=== PATIENT | male | born 1975 | race Caucasian/White ===

== ENCOUNTER 2025-04-03 15:06 | Outpatient (AMB) | payer BC, SELFPAY ==
[2025-04-03 15:28] VITALS: BP 120/76; PULSE 59; BMI 29.6
--- NOTE | 2025-04-03 15:28 | A.OFFVIS_ITS ---
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 Patient is a 49-year-old male with prior history of what appears to be TIA as per him treated about 10 years ago at [facility] subsequently transferred to [facility]. He does not know much details of the workup and the entire episode however he says that he had developed sudden-onset vision loss and had trouble focusing and got dizzy and had gone to the emergency room. At that time was diagnose with possible TIA/stroke and was urgently transferred to [facility] where he underwent further workup. He is not sure as to the details of the workup but remembers that he was told that he might have a small hole in his heart. No further follow-up or treatment or therapy such as antiplatelet therapy was requested for him. He was at that time diagnose with hypertension and was started on lisinopril therapy which she has been taking. Ever since then before that he said he has been avid runner. He can run trail runs for 3 to 3-1/2 hours and have no issues. He usually runs with a partner. However he says over the last 2 years he has notices that he has been getting increasing exertional shortness of breath and inability to keep up with his partner. His symptoms have got worse over the last 6 months in his really concerned about the symptoms. He said he gets really short of breath and lightheaded and has to stop in his symptoms pippa and then he can continue to run. He has no associated chest pain. He has no orthopnea, PND, leg edema. Denies any prolonged palpitation irregular heartbeat. Family history of father having stenting done in his 60s. He said he has cholesterol was pretty normal although I do not have his most recent lipid panel. He said he stopped smoking many years ago but was exposed as a child to smoking. [facility] Surgical History Hx of hernia repair Social History Patient Tobacco Use Status: Former Tobacco user Review of Systems Const Denies chills, Denies daytime sleepiness, Denies fatigue, Denies fever(s), Denies frequent falls, Denies poor appetite, Denies snoring, Denies stops breathing during sleep, Denies weakness, Denies weight gain and Denies weight loss Eyes Denies loss of vision ENT Denies dizziness and Denies hearing loss Card Denies chest pain, Denies claudication, Denies leg edema, Denies li ghtheadedness, Denies palpitations, Denies dyspnea, Denies dyspnea on exertion and Denies orthopnea Resp Denies cough, Denies excessive phlegm production, Denies dyspnea, Denies dyspnea on exertion, Denies snoring and Denies wheezing GI Denies abdominal pain, Denies hematochezia, Denies change in bowel habits, Denies nausea and Denies vomiting Denies dysuria and Denies urinary frequency Musc Denies arthralgias, Denies muscle weakness and Denies numbness Skin/Breast Denies nail changes and Denies rash Neuro Denies Abnormal speech present, Denies dizziness, Denies frequent falls, Denies loss of vision, Denies memory loss, Denies numbness and Denies weakness Psych Denies depression and Denies memory loss Endo Denies fatigue and Denies palpitations Hipolito/Lymph Reports easy bruising and Reports other (anemia) Aller/Immun Denies wheezing Physical Exam Vital Signs: Last Vital Signs Pulse 59 04/03/25 15:28 BP 120/76 04/03/25 15:28 BMI result Body Mass Index 29.6 Const General: cooperative, comfortable, no acute distress, well developed, alert, awake, Physically active and well groomed Nutritional Appearance: average body habitus Orientation/consciousness: patient oriented x3 Limitations: no limitations HEENT Head: Yes normocephalic and Yes atraumatic Neck Neck: Yes trachea midline, Yes supple and Yes no JVD Resp Effort & Inspection: normal respiratory effort Auscultation: clear to auscultation bilaterally and diminished lung sounds Cardio Jugular venous distension: no JVD Palpation: normal PMI Rate: regular rate Rhythm: regular rhythm Heart sounds: S1 normal heart sound present, S2 normal heart sound present, no click, no gallops, no murmurs and no rubs GI Auscultation: normal bowel sounds Skin General skin exam: no rashes or lesions noted Neuro General: patient oriented x3 and no focal motor deficits Speech: No Abnormal speech present Extrem General: Yes no clubbing, cyanosis or edema Psych Appearance: grossly normal Office Procedures EKG Details: EKG shows sinus bradycardia otherwise normal EKG 38635-Odzceankscynseegi, Complete Assessment & Plan Assessment & Plan (1) Short of breath on exertion: Code(s): R06.02 - Shortness of breath Category: Medical Plan: Patient presents with reducing exercise capacity with worsening exertional shortness of breath with his usual activity as running which he is not able to keep up with his partners at this point time over the last 6 months this is gradually got worse. He has no associated chest pain syndrome. Although he has risk factors of hypertension as well as family history. Cardiac abnormalities need to be ruled out especially myocardial ischemia. Given his baseline normal EKG will suggest him to undergo a treadmill stress test to assess exercise capacity as well as hemodynamic response and EKGs changes that would suggest ischemia. Will also obtain an echocardiogram to assess for LV systolic and diastolic function to evaluate for RV size and systolic function and pulmonary hypertension as well as valvular abnormalities. This was discussed with him in details. His lung exam findings up possibly suggestive of underlying lung parenchymal disease and if his cardiac testing are within normal limits suggest him to undergo pulmonary function test but also consider screening test with coronary calcium score in the future. This was discussed with him in details. He understands agrees. Currently his blood pressure is well optimized in his advised to continue lisinopril therapy. I am concerned about his prior episode of TIA 10 years ago and will try to obtain records especially to assess for presence of PFO and we may need to further investigate and treat that if necessary. Will follow up with him in 4-6 weeks time, sooner p.r.n.. Thank you for allowing me to partake in his care Orders: Orders CA echo transthoracic complete Today R06.02 - Shortness of breath CA stress test Today R06.02 - Shortness of breath Coding Level of Care Code New Pt Level 4 (09861) Complex EM visit Add On G2211 Diagnoses Short of breath on exertion R06.02 CPT Codes EKG - CPT: 08725-Olysbddcgjbilbpdz, Complete ([id number])
--- OUTSIDE RECORDS SUMMARY | 2025-04-03 16:02 | XMS_ITS ---
Author Name [facility] Organization Unknown Care Team Organization Name Specialty Phone Email Start Date End Da sterling [facility] And[facility] 06/22/2022 04/02/2024
--- OUTSIDE RECORDS SUMMARY | 2025-04-03 16:02 | XMS_ITS | Clinical Summary ---
Author Organization [address] Address [address] [place] [phone] Phone Care Team Providers Care Airline Station Agent Name Role Phone Noemi Andrade MD Primary Care Provider [phone] Allergies No known active allergies Medications allopurinoL (ZYLOPRIM) 100 mg tablet Take 1 tablet (100 mg total) by mouth 1 (one) time each day. 90 each 1 5 Active lisinopriL (PRINIVIL,ZESTR IL) 5 mg tablet Take 1 tablet (5 mg total) by mouth 1 (one) time each day. 90 each 5 Active Additional Information Patient taking differently:5 mg oralEvery other day, Reported on 01/10/2025 polyethylene glycol (Golytely) 236-22.74-6.74 -5.86 gram solution Take 4L by mouth once for one dose. May substitue any PEG. Starting at 6PM the night before your procedure drink 1 8oz glasses at your own pace until you complete half of the gallon. Finish 2nd half of the gallon 5 hours before your procedure. 4000 mL 5 Active bisacodyL (DULCOLAX) 5 mg EC tablet Take 2 tablets by mouth right before beginning bowel prep. See instructions provided by the office 2 tablet 5 Active Active Problems Problem Noted Date Diagnosed Date Recurrent left inguinal hernia 04/11/2019 Umbilical hernia 04/11/2019 Hyperglycemia 06/01/2018 TIA (transient ischemic attack) 07/09/2015 Overview (07/16/2024): Acute episode -vertigo. TIA per [facility] Patent foramen ovale 06/03/2015 Overview (07/16/2024): BILL @ [facility]- PFO w/ shunt at rest. Dyslipidemia 08/02/2013 HTN (hypertension) 08/02/2013 Eosinophilic esophagitis 02/05/2011 Overview (07/16/2024): EGD + bx 02/09/2011: eosinophilic esophagitis. Gout 03/06/2010 Encounters Date Type Department Care Team Description 01/10/2025 3:49 PM EDT Anesthesia Event [facility] [address] [place] [address] Tamica Kumari MD 01/10/2025 2:10 PM EDT - 01/10/2025 11:59 PM EDT Hospital Encounter [facility] [address] [place] [address] Aditya Jarvis MD Steele, Matthew G, CRNA Colon cancer screening Discharge Disposition: Home or Self Care from Last 3 Months Immunizations Name Administration Dates Next Due COVID-19 (Moderna/Spikevax) 12yo and older 06/16 Influenza trivalent, 0.5mL, preservative free (Fluarix; FluLaval; Fluzone) ages 6mo and older (Afluria) 3 years and older 06/11/2013,07/24/2010 Tdap Tetanus diptheria acell ular pertussis (Boostrix; Adacel) 7yo and older 08/03/2023,03/06/2010 Surgical History Surgery Date Site/Laterality Comments OTHER SURGICAL HISTORY 02/09/2011 PROCEDURE: AL ESOPHAGOSCOPY FLEXIBLE TRANSORAL WITH BIOPSY; COMMENT: esoph bx: Eosinophilic esophagitis OTHER SURGICAL HISTORY Left PROCEDURE: AL RPR 1ST INGUN HRNA FULL TERM INFT <6 MO RDC ESOPHAGOGASTRODUODENOSCOPY Medical History Medical History Date Comments Elevated blood pressure DX:Maicol colbert blood pressure Gout 03/06/2010 DX:Gout Eosinophilic esophagitis 02/05/2011 DX:Eosi nophilic esophagitis Dyslipidemia 08/02/2013 DX:Dyslipidemia HTN (hypertension) 08/02/2013 DX:HTN (hyper tension) Patent foramen ovale 06/03/2015 DX:Patent f oramen ovale; COMMENT: BILL @ [facility]- PFO w/ shunt at rest. PFO (patent foramen ovale) 07/09/2015 DX:PF O (patent foramen ovale); COMMENT: Acute episode -vertigo. TIA per [facility] Hyperglycemia 06/01/2018 DX:Hyperglycemia Family History Medical History Relation Name Comments Hyperlipidemia Father Other: glaucoma Father CAD/stent Other: arrythmia Mother Relation Name Status Comments Father Alive Mother Alive Social History Tobacco Use Types Packs/Day Years Used Date Smoking Tobacco: Former Cigarettes Smokeless Tobacco: Never Tobacco Cessation:Counseling Given: Not Answered Alcohol Use Standard Drinks/Week Comments Yes 7 (1 standard drink = 0.6 oz pur e alcohol) Interpersonal Safety Answer Date Record ed Physical Abuse 01/10/2025 Verbal Abuse 01/10/2025 Sex and Gender Information Value Date Recorded Sex Assigned at Not on file Legal Sex Male 4:12 PM EST Gender Identity Not on file Sexual Orientation Not on file Obstetrics History Last Filed Vital Signs Vital Sign Reading Time Taken Comments Blood Pressure 150/92 01/10/2025 4:32 PM EDT Pulse 68 01/10/2025 4:32 PM EDT Temperature 36.3 C (97.3 F) 01/10/2025 4:12 PM EDT Respiratory Rate 16 01/10/2025 4:32 PM EDT Oxygen Saturation 100% 01/10/2025 4:32 PM EDT Inhaled Oxygen Concentration - - Weight 97.5 kg (215 lb) 01/10/2025 3:02 PM EDT Height 182.9 cm (6') 01/10/2025 3:02 PM EDT Body Mass Index 29.16 01/10/2025 3:02 PM EDT Plan of Treatment Upcoming Encounters Date Type Department Care Team (Late st Contact Info) Description 04/24/2025 2:30 PM EDT Office Visit [facility] [address] [place] [address] Drew Michele MD [address] [place] [address] [place] [address] Health Maintenance Due Date Last Done Comments Hepatitis B Vaccines (1 of 3 - 19+ 3-dose series) 1995 HIV Screening 07/14/2022 Hepatitis C Screening 07/14/2022 Social Influencers of Health Screening 07/14/2022 COVID-19 Vaccine ( season) 2024 06/16/2022, 07/02/2021, 11/30/2020, Additional history exists Hypertension/CHF/CAD Annual BMP Blood Test 03/09/2025 03/09/2024, 03/09/2024, 01/26/2024 Influenza Vaccine (#1) 2025 , 05/20/2020, 06/11/2013, Additional history exists Cholesterol Screening (Lipid Panel) 01/25/2029 01/26/2024, 01/26/2024 DTaP,Tdap,and Td Vaccines (3 - Td or Tdap) 08/03/2033 08/03/2023, 03/06/2010 Colorectal Cancer Screening: Colonoscopy 01/10/2035 01/10/2025 Depression Screening Completed 09/10/2024 HIB Vaccines Aged Out No longer eligi ble based on patient's age to complete this topic HPV Vaccines Aged Out No longer eligi ble based on patient's age to complete this topic Hepatitis A Vaccines Aged Out No long er eligible based on patient's age to complete this topic IPV Vaccines Aged Out No longer eligi ble based on patient's age to complete this topic MMR Vaccines Aged Out No longer eligi ble based on patient's age to complete this topic Meningococcal ACWY Vaccine Aged Out N o longer eligible based on patient's age to complete this topic Meningococcal B Vaccine Aged Out No l onger eligible based on patient's age to complete this topic Pneumococcal Vaccine: Pediatrics (0 to 5 Years) and At-Risk Patients (6 to 49 Years) Aged Out No longer eligible based on patient's age to complete this topic RSV Immunization Patients Under 20 months Aged Out No longer eligible based on patient's age to complete this topic Varicella Vaccines Aged Out No longer eligible based on patient's age to complete this topic Procedures Procedure Name Priority Date/Time Associated Diagnosis Comments COLONOSCOPY Routine 01/10/2025 4:11 PM EDT Colon cancer screening ANNUAL BMP BLOOD TEST Routine 03/09/2024 LIPID PANEL Routine 01/26/2024 from Last 3 Months or Most Recently Relevant to Health Maintenance Results * COLONOSCOPY Anesthesia - MAC; [facility] ENDOSCOPY (01/10/2025 4:11 PM EDT) Anatomical Region Laterality Modality Endoscopy 01/10/2025 3:49 PM EDT Impressions 01/10/2025 4:13 PM EDT - Diverticulosis in the sigmoid colon. - No specimens collected. Recommendation: - Discharge patient to home. - Repeat colonoscopy in 10 years for screening purposes. Narrative 01/10/2025 4:13 PM EDT [facility] Patient Name: Zia Perez Procedure Date: 01/10/2025 3:49 PM Date of : 1975 Age: 49 Gender: Male Note Status: Finalized Attending MD: Aditya Jarvis MD, Procedure Date No Time: 01/10/2025 Procedure: Colonoscopy Indications: Screening for colorectal malignant neoplasm Providers: Aditya Jarvis MD Referring MD: Aditya Jarvis MD Medicines: Monitored Anesthesia Care Complications: No immediate complications. Estimated blood loss: None. Estimated Blood Loss: Estimated blood loss: none. Procedure: Pre-Anesthesia Assessment: - Prior to the procedure, a History and Physical was performed, and patient medications and allergies were reviewed. The patient is competent. The risks and benefits of the procedure and the sedation options and risks were discussed with the patient. All questions were answered and informed consent was obtained. Patient identification and proposed procedure were verified by the physician, the nurse, the computer customer support specialist and the automotive repair technician in the pre-procedure area in the endoscopy suite. Mental Status Examination: alert and oriented. Airway Examination: normal oropharyngeal airway and neck mobility. Respiratory Examination: clear to auscultation. CV Examination: normal. Prophylactic Antibiotics: The patient does not require prophylactic antibiotics. Prior Anticoagulants: The patient has taken no anticoagulant or antiplatelet agents. ASA Grade Assessment: II - A patient with mild systemic disease. After reviewing the risks and benefits, the patient was deemed in satisfactory condition to undergo the procedure. The anesthesia plan was to use monitored anesthesia care (MAC). Immediately prior to administration of medications, the patient was re-assessed for adequacy to receive sedatives. The heart rate, respiratory rate, oxygen saturations, blood pressure, adequacy of pulmonary ventilation, and response to care were monitored throughout the procedure. The physical status of the patient was re-assessed after the procedure. After I obtained informed consent, the scope was passed under direct vision. Throughout the procedure, the patient's blood pressure, pulse, and oxygen saturations were monitored continuously. The Colonoscope was introduced through the anus and advanced to the cecum, identified by appendiceal orifice and ileocecal valve. The colonoscopy was performed without difficulty. The patient tolerated the procedure well. The quality of the bowel preparation was good. Findings: The perianal and digital rectal examinations were normal. A few small-mouthed diverticula were found in the sigmoid colon. The retroflexed view of the distal rectum and anal verge was normal and showed no anal or rectal abnormalities. Procedure Code(s): --- Professional --- G0121, Colorectal cancer screening; colonoscopy on individual not meeting criteria for high risk Diagnosis Code(s): --- Professional --- Z12.11, Encounter for screening for malignant neoplasm of colon CPT copyright 2020 [employer]. All rights reserved. The codes documented in this report are preliminary and upon computer support specialist review may be revised to meet current compliance requirements. Aditya Jarvis MD 01/10/2025 4:12:56 PM This report has been signed electronically.Aditya Jarvis MD Number of Addenda: 0 Note Initiated On: 01/10/2025 3:49 PM Scope Withdrawal Time: 0 hours 10 minutes 35 seconds Scope In: 3:56:13 PM Scope Out: 4:11:16 PM Endoscopy Department at [facility] - [address] [place] [phone] Procedure Note Aditya Jarvis MD - 01/10/2025 [facility] GI Patient Name: Zia Perez Procedure Date: 01/10/2025 3:49 PM Date of : 1975 Age: 49 Gender: Male Note Status: Finalized Attending MD: Aditya Jarvis MD, Procedure Date No Time: 01/10/2025 Procedure: Colonoscopy Indications: Screening for colorectal malignant neoplasm Providers: Aditya Jarvis MD Referring MD: Aditya Jarvis MD Medicines: Monitored Anesthesia Care Complications: No immediate complications. Estimated blood loss:None. Estimated Blood Loss: Estimated blood loss: none. Procedure: Pre-Anesthesia Assessment: - Prior to the procedure, a History and Physicalwas performed, and patient medications and allergieswere reviewed. The patient is competent. The risks and benefits of the procedure and the sedation optionsand risks were discussed with the patient. Allquestions were answered and informed consent was obtained. Patient identification and proposed procedure were verified by the physician, the nurse, theanesthetist and the automotive repair technician in the pre-procedure area in the endoscopy suite. Mental Status Examination: alertand oriented. Airway Examination: normal oropharyngeal airway and neck mobility. Respiratory Examination: clear to auscultation. CV Examination: normal. Prophylactic Antibiotics: The patient does notrequire prophylactic antibiotics. Prior Anticoagulants: The patient has taken no anticoagulant or antiplatelet agents. ASA Grade Assessment: II - A patient withmild systemic disease. After reviewing the risks and benefits, the patient was deemed in satisfactory condition to undergo the procedure. The anesthesia plan was to use monitored anesthesia care (MAC). Immediately prior to administration of medications, the patient was re-assessed for adequacy to receive sedatives. The heart rate, respiratory rate, oxygen saturations, blood pressure, adequacy of pulmonary ventilation, and response to care were monitored throughout the procedure. The physical status ofthe patient was re-assessed after the procedure. After I obtained informed consent, the scope was passed under direct vision. Throughout theprocedure, the patient's blood pressure, pulse, and oxygen saturations were monitored continuously. The Colonoscope was introduced through the anus and advanced to the cecum, identified by appendiceal orifice and ileocecal valve. The colonoscopy was performed without difficulty. The patient tolerated the procedure well. The quality of the bowel preparation was good. Findings: The perianal and digital rectal examinations were normal. A few small-mouthed diverticula were found in the sigmoid colon. The retroflexed view of the distal rectum and anal verge was normal and showed no anal or rectal abnormalities. Procedure Code(s): --- Professional --- G0121, Colorectal cancer screening; colonoscopy on individual not meeting criteria for high risk Diagnosis Code(s): --- Professional --- Z12.11, Encounter for screening for malignantneoplasm of colon CPT copyright 2020 [employer]. All rights reserved. The codes documented in this report are preliminary and upon computer support specialist reviewmay be revised to meet current compliance requirements. Aditya Jarvis MD 01/10/2025 4:12:56 PM This report has been signed electronically.Aditya Jarvis MD Number of Addenda: 0 Note Initiated On: 01/10/2025 3:49 PM Scope Withdrawal Time: 0 hours 10 minutes 35 seconds Scope In: 3:56:13 PM Scope Out: 4:11:16 PM Endoscopy Department at [address] [phone] IMPRESSION: - Diverticulosis in the sigmoid colon. - No specimens collected. Recommendation: - Discharge patient to home. - Repeat colonoscopy in 10 years for screening purposes. Aditya Jarvis MD GI~PROCEDURE ORDERABLES Fin al Result * Annual BMP Blood Test (03/09/2024) Pathologist [facility] Annual [facility] Blood Test abstracted Historical Provider HEALTH MAINTENANCE Final Result * (ABNORMAL) Lipid panel (01/26/2024) LDL/HDL Ratio 3 0 - 4 Triglycerides 72 0 - 150 mg/dL Cholesterol 208(A) 0 - 200 mg/dL HDL 71 >=40 mg/dL LDL Cholesterol 123(A) 0 - 100 mg/dL Blood Venous blood specimen / Unknown Historical Provider LAB BLOOD ORDERABLES Bia l Result from Last 3 Months or Most Recently Relevant to Health Maintenance Insurance [id number] Care Teams Airline Station Agent Relationship Specialty Start Date End Date Noemi Andrade MD [address] [place] [address] PCP - General 06/27/20
--- OUTSIDE RECORDS SUMMARY | 2025-04-03 16:02 | XMS_ITS | Clinical Summary ---
Author Organization [facility] Address [address] [facility] [address] [place] [phone] Phone Care Team Providers Care Edging Machine Setter Name Role Phone Noemi Andrade MD Primary Care Provider [phone] Allergies No known active allergies Medications allopurinol (ZYLOPRIM) 300 MG tablet 0 8 Active lisinopril (PRINIVIL,ZESTR IL) 5 MG tablet 8 Active EPINEPHrine 0.3 mg/0.3 mL auto-injector Inject 0.3 mL (0.3 mg total) into the muscle as needed for anaphylaxis. 2 each 2 4 Active Additional Information Patient not taking.Reported on 01/12/2024 Active Problems No known active problems Family History Medical History Relation Comments Cardiovascular disease Mother arrhythmi a, s/p ablation Relation Status Comments Mother Social History Tobacco Use Types Packs/Day Years Used Date Smoking Tobacco: Never Smokeless Tobacco: Never Tobacco Cessation:Counseling Given: Not Answered Alcohol Use Standard Drinks/Week Comments Yes 0 (1 standard drink = 0.6 oz pur e alcohol) Education Answer Date Recorded Are you interested in more education? Not on radha e 12/10/2022 Are you concerned about learning? Not on file 12/10/2022 No 12/10/2022 No 12/10/2022 Digital Access Answer Date Recorded No 01/10/2023 No 01/10/2023 Reliable internet access at home? Not on file 01/10/2023 Device with a working camera? Not on file Intimate Partner Violence Answer Date R ecorded Are you denied basic needs s uch as food, clothing, or medical care? No 10/11/2023 In the past 12 months have y ou been in a relationship with a person who hurts, threatens, or tries to control you? No 10/11/2023 Are you denied basic needs s uch as food, clothing, or medical care? No 10/11/2023 In the past 12 months have y ou been in a relationship with a person who hurts, threatens, or tries to control you? No 10/11/2023 Sex and Gender Information Value Date Recorded Sex Assigned at Male 05/31/2019 10:01 AM EDT Legal Sex Male 7:37 PM EDT Gender Identity Male 05/31/2019 10:01 AM EDT Sexual Orientation Straight 05/31/2019 10 :01 AM EDT Last Filed Vital Signs Vital Sign Reading Time Taken Comments Blood Pressure 151/99 01/12/2024 4:29 PM EDT Pulse 61 01/12/2024 4:29 PM EDT Temperature 36.8 C (98.2 F) 01/12/2024 4:29 PM EDT Respiratory Rate 16 01/12/2024 4:29 PM EDT Oxygen Saturation 98% 01/12/2024 4:29 PM EDT Inhaled Oxygen Concentration - - Weight 89.4 kg (197 lb) 05/31/2019 9:54 AM EDT Height 182.9 cm (6') 05/31/2019 9:54 AM EDT Body Mass Index 26.72 05/31/2019 9:54 AM EDT Plan of Treatment Health Maintenance Due Date Last Done Comments DEPRESSION SCREENING 1988 HEPATITIS C SCREENING 1994 HIV ONE-TIME SCREENING (18-65 YEARS) 1994 LIPID PANEL 05/10/2020 05/10/2015 CREATININE LEVEL 05/31/2020 05/31/2019, 05/08/2015 POTASSIUM LEVEL 05/31/2020 05/31/2019, 05/08/2015 COLOGUARD 2021 COLONOSCOPY 2021 COLORECTAL CANCER SCREENING 2021 FIT TEST 2021 FOBT 2021 SIGMOIDOSCOPY 2021 VIRTUAL COLONOSCOPY 2021 COVID-19 VACCINE ( season) 2024 06/16/2022, 07/02/2021, 11/30/2020, Additional history exists Adult Td,Tdap Booster 08/03/2033 08/03/2023, 010 SMOKING STATUS SCREENING (Once After 26 Yrs) Completed 01/12/2024 HEPATITIS A VACCINES Aged Out No long er eligible based on patient's age to complete this topic HIB VACCINES Aged Out No longer eligi ble based on patient's age to complete this topic MENINGOCOCCAL VACCINES (ACWY) Aged Out No longer eligible based on patient's age to complete this topic MENINGOCOCCAL VACCINES (B) Aged Out N o longer eligible based on patient's age to complete this topic PNEUMOCOCCAL VACCINES (0-49 years) Aged Out No longer eligible based on patient's age to complete this topic Medical Devices Not on file Procedures Procedure Name Priority Date/Time Associated Diagnosis Comments BASIC METABOLIC PANEL STAT 05/31/2019 11:29 AM EDT LIPID PANEL Routine 05/10/2015 12:00 PM EDT from Last 3 Months or Most Recently Relevant to Health Maintenance Results * (ABNORMAL) Basic metabolic panel (05/31/2019 11:29 AM EDT) SODIUM 141 133 - 146 mmol/L [facility] CHLORIDE 104 96 - 108 mmol/L [facility] POTASSIUM 4.0 3.3 - 5.1 mmol/L [facility] CO2 26 21 - 35 mmol/L [facility] BUN 10 6 - 19 mg/dL [facility] CREATININE 0.90 0.5 - 1.5 mg/dL [facility] GLUCOSE 106(H) 70 - 99 mg/dL [facility] CALCIUM 9.7 8.4 - 10.3 mg/dL [facility] EGFR 105 >59 mL/min/1.7 3m2 [facility] Comment:If patient is black, multiply result by 1.159. Estimated glomerular filtration rate calculated using the CKD-EPI equation. ANION GAP 15 10 - 20 mmol/L [facility] Blood 05/31/2019 11:2 9 AM EDT 05/31/2019 11:38 AM EDT Em Vanessa PA LAB BLOOD ORDERABLES Fi nal Result [facility] [address] [place] [address] * Lipid panel (05/10/2015 12:00 PM EDT) High Density Lipoprotein 43 35 - 100 mg/dL [facility] Cholesterol 186 mg/dL [facility] Comment:DESIRABLE: <200 Triglycerides 120 40 - 150 mg/dL [facility] Low Density Lipoprotein 119 mg/dL [facility] Comment:DESIRABLE: <130 Cardiac Risk Ratio 4.3 [facility] Comment:NORMAL RISK RATIO: 5 .0 OR LESS 05/10/2015 12:0 0 PM EDT 05/10/2015 12:27 PM EDT Comment:BLOOD us Sharon Rios CORPORATE LOGISTICS MANAGER LAB BLOOD ORDERABLES Edited Re sult - Final [facility] [address] [place] [address] from Last 3 Months or Most Recently Relevant to Health Maintenance Insurance [facility] PPO EPO [facility] PPO EPO [facility] PPO EPO [facility] PPO EPO [facility] PPO EPO [facility] PPO EPO Care Teams Edging Machine Setter Relationship Specialty Start Date End Date Noemi Andrade MD [address] [place] [phone] PCP - General Internal Medicine 08/20/22 Additional Source Comments The information contained in this document represents components of the legal health record. It is not the complete legal health record.[facility]
== END 2025-04-03 16:09 | disposition home or self-care (01) ==
PROVIDERS: Visit Provider Internal Medicine Cardiovascular Disease
DX: R06.02 Shortness of breath (principal)
CPT/HCPCS: 93010; 99204

== ENCOUNTER → 2025-04-03 15:06 | Outpatient (BNVA) | payer BC, SELFPAY | PROVIDERS: Visit Provider Internal Medicine Cardiovascular Disease | DX: R06.02 Shortness of breath (principal) | CPT/HCPCS: 93005 ==

== ENCOUNTER → 2025-05-02 09:21 | Outpatient (REF) | payer BC, SELFPAY ==
--- NOTE | 2025-05-02 09:25 | CA_ITS ---
Acquisition Time: 2025-05-02 09:47:44 Total Exercise Time: 00:10:30 Test Indications: Dyspnea Medications: ALLOPURINOL LISINOPRIL Protocol: ROSA Max HR: 153 BPM 88% of Pred: 172 BPM Max BP: 192/88 mmHG Max Work Load: 12.5 METS Exercise stress test with exercise 10 mins 30 secs of Rosa Protocol, achieving 88% MPHR, with reports of mild SOB, no chest pain, with isolated PACs, with normotensive response to exercise. Without any EKG changes meeting criteria for ischemia. In recovery, pt's breathing returned to baseline. Test reviewed with Dr. Truong. Referred By: Magdiel Reynoso Electronically Signed By: Tanvir Bonilla
--- OUTSIDE RECORDS SUMMARY | 2025-05-02 10:55 | XMS_ITS | Clinical Summary ---
Author Organization [facility] Address [address] [facility] [address] [place] [address] Phone Care Team Providers Care Onion Farmer Name Role Phone Noemi Andrade MD Primary Care Provider [phone] Allergies No known active allergies Medications allopurinol [...] 2024 06/16/2022, 07/02/2021, 11/30/2020, Additional history exists INFLUENZA VACCINE (#1) 2025 2, 05/20/2020, 06/11/2013, Additional history exists Adult Td,Tdap Booster 08/03/2033 [...] EDT) SODIUM 141 133 - 146 mmol/L [facility] CHLORIDE 104 96 - 108 mmol/L [facility] POTASSIUM 4.0 3.3 - 5.1 mmol/L [facility] CO2 26 21 - 35 mmol/L [facility] BUN 10 6 - 19 mg/dL [facility] CREATININE 0.90 0.5 - 1.5 mg/dL [facility] GLUCOSE 106(H) 70 - 99 mg/dL [facility] CALCIUM 9.7 8.4 - 10.3 mg/dL [facility] EGFR 105 >59 mL/min/1.7 3m2 [facility] Comment:If patient is black, multiply result by 1.159. Estimated glomerular filtration rate calculated using the CKD-EPI equation. ANION GAP 15 10 - 20 mmol/L [facility] Blood 05/31/2019 11:2 9 AM EDT 05/31/2019 11:38 AM EDT us Em Vanessa PA LAB BLOOD ORDERABLES Fi nal Result [facility] [address] [place] [address] * Lipid panel (05/10/2015 12:00 PM EDT) High Density Lipoprotein 43 35 - 100 mg/dL [facility] Cholesterol 186 mg/dL [facility] Comment:DESIRABLE: <200 Triglycerides 120 40 - 150 mg/dL [facility] Low Density Lipoprotein 119 mg/dL [facility] Comment:DESIRABLE: <130 Cardiac Risk Ratio 4.3 [facility] Comment:NORMAL RISK RATIO: 5 .0 OR LESS 05/10/2015 12:0 0 PM EDT 05/10/2015 12:27 PM EDT Comment:BLOOD us Sharon Rios CNP LAB BLOOD ORDERABLES Edited Re sult - Final [facility] [address] [place] [address] from Last 3 Months or Most Recently Relevant to Health Maintenance Insurance [facility] PPO EPO [facility] PPO EPO [facility] PPO EPO [facility] [place] [address] [address] [place] [address] PPO EPO [facility] PPO EPO Care Teams Onion Farmer Relationship Specialty Start Date End Date Noemi Andrade MD [address] [place] [id number] PCP - General Internal Medicine 08/20/22 Additional Source Comments The information contained in this document represents components of the legal health record. It is not the complete legal health record.[facility]
--- OUTSIDE RECORDS SUMMARY | 2025-05-02 10:55 | XMS_ITS | Clinical Summary ---
Author Organization [facility] [address] [place] [address] [place] [phone] Phone Care Team Providers Care Line Closer Name Role Phone Noemi Andrade MD Primary Care Provider [phone] Allergies No known active allergies Medications allopurinoL [...] Overview (07/16/2024): Acute episode -vertigo. [place] [facility] [place] foramen ovale 06/03/2015 Overview (07/16/2024): [place] [facility] w/ shunt at rest. Dyslipidemia 08/02/2013 HTN (hypertension) 08/02/2013 Eosinophilic esophagitis 02/05/2011 Overview (07/16/2024): EGD + bx 02/09/2011: eosinophilic esophagitis. Gout 03/06/2010 Immunizations Name Administration Dates Next Due COVID-19 (Moderna/Spikevax) 12yo and older 06/16 Influenza trivalent, 0.5mL, preservative free (Fluarix; FluLaval; Fluzone) ages 6mo and older (Afluria) 3 years and older 06/11/2013,07/24/2010 Tdap Tetanus diptheria acell ular pertussis (Boostrix; Adacel) 7yo and older 08/03/2023,03/06/2010 Surgical History Surgery Date Site/Laterality Comments OTHER SURGICAL HISTORY 02/09/2011 PROCEDURE: ND ESOPHAGOSCOPY FLEXIBLE TRANSORAL WITH BIOPSY; COMMENT: esoph bx: Eosinophilic esophagitis OTHER SURGICAL HISTORY Left PROCEDURE: ND RPR 1ST INGUN HRNA FULL TERM INFT <6 MO RDC ESOPHAGOGASTRODUODENOSCOPY Medical History Medical History Date Comments Elevated blood pressure DX:[place] filemon blood pressure Gout 03/06/2010 DX:Gout Eosinophilic esophagitis 02/05/2011 DX:Eosi nophilic esophagitis Dyslipidemia 08/02/2013 DX:Dyslipidemia HTN (hypertension) 08/02/2013 DX:HTN (hyper tension) Patent foramen ovale 06/03/2015 DX:Patent f oramen ovale; COMMENT: [place] [facility] w/ shunt at rest. PFO (patent foramen ovale) 07/09/2015 DX:PF O (patent foramen ovale); COMMENT: Acute episode -vertigo. [place] [facility] Hyperglycemia 06/01/2018 DX:Hyperglycemia Family History Medical History [...] 01/10/2025 3:02 PM EDT Plan of Treatment Health Maintenance Due Date Last Done Comments Hepatitis B Vaccines (1 of 3 - 19+ 3-dose series) 1995 HIV Screening 07/14/2022 Hepatitis C Screening 07/14/2022 Social Influencers of Health Screening 07/14/2022 Hypertension/CHF/CAD Annual BMP Blood Test 03/09/2025 03/09/2024, 03/09/2024, 01/26/2024 COVID-19 Vaccine ( season) 2025 06/16/2022, 07/02/2021, 11/30/2020, Additional history exists Influenza Vaccine (#1) 2025 , 05/20/2020, 06/11/2013, Additional history exists Cholesterol Screening (Lipid Panel) 01/25/2029 01/26/2024, 01/26/2024 DTaP,Tdap,and Td Vaccines (3 - Td or Tdap) 08/03/2033 08/03/2023, 03/06/2010 Colorectal Cancer Screening: Colonoscopy 01/10/2035 01/10/2025 RSV Immunization Adult Patients (1 - 1-dose 75+ series) 2051 Depression Screening Completed 09/10/2024 HIB Vaccines Aged [...] Maintenance Results * COLONOSCOPY Anesthesia - MAC; SP ENDOSCOPY (01/10/2025 4:11 PM EDT) Anatomical Region Laterality Modality Endoscopy 01/10/2025 3:49 PM EDT Impressions 01/10/2025 4:13 PM EDT - Diverticulosis in the sigmoid colon. - No specimens collected. Recommendation: - Discharge patient to home. - Repeat colonoscopy in 10 years for screening purposes. Narrative 01/10/2025 4:13 PM EDT GI Patient Name: Zia Perez Procedure Date: [...] verified by the physician, the nurse, the teacher public health and the irrigation technician in the pre-procedure area in the [...] malignant neoplasm of colon CPT copyright 2020 [employer]. All rights reserved. The codes documented in this report are preliminary and upon gasoline locomotive crane operator review may be revised to meet current compliance requirements. Aditya Jarvis MD 01/10/2025 4:12:56 PM This report has been signed electronically.Aditya Jarvis MD Number of Addenda: 0 Note Initiated On: 01/10/2025 3:49 PM Scope Withdrawal Time: 0 hours 10 minutes 35 seconds Scope In: 3:56:13 PM Scope Out: 4:11:16 PM Endoscopy Department at - [address] [place] [phone] Procedure Note Aditya Jarvis MD - 01/10/2025 GI Patient Name: Zia Perez Procedure Date: [...] the physician, the nurse, theanesthetist and the irrigation technician in the pre-procedure area in the [...] for malignantneoplasm of colon CPT copyright 2020 [employer]. All rights reserved. The codes documented in this report are preliminary and upon gasoline locomotive crane operator reviewmay be revised to meet current compliance requirements. Aditya Jarvis MD 01/10/2025 4:12:56 PM This report has been signed electronically.Aditya Jarvis MD Number of Addenda: 0 Note Initiated On: 01/10/2025 3:49 PM Scope Withdrawal Time: 0 hours 10 minutes 35 seconds Scope In: 3:56:13 PM Scope Out: 4:11:16 PM Endoscopy Department at - [address] [place] [phone] IMPRESSION: - Diverticulosis in the sigmoid colon. - No specimens collected. Recommendation: - Discharge patient to home. - Repeat colonoscopy in 10 years for screening purposes. Aditya Jarvis MD GI~PROCEDURE ORDERABLES Fin al Result * Annual BMP Blood Test (03/09/2024) Annual BMP Blood Test abstracted Historical Provider HEALTH MAINTENANCE [...] Most Recently Relevant to Health Maintenance Insurance [facility] Care Teams Line Closer Relationship Specialty Start Date End Date Noemi Andrade MD [address] [place] [phone] [facility] - General 06/27/20
== END ==
LOC: HO.CARD 09:21
PROVIDERS: PCP Internal Medicine; Visit Provider Internal Medicine Cardiovascular Disease
DX: R06.02 Shortness of breath (principal)
CPT/HCPCS: 93017

== ENCOUNTER → 2025-05-02 09:25 | Outpatient (BNV) | payer BC, SELFPAY | PROVIDERS: PCP Internal Medicine | DX: I49.1 Atrial premature depolarization (principal); R06.02 Shortness of breath | CPT/HCPCS: 93016; 93018 ==

== ENCOUNTER → 2025-05-09 09:41 | Outpatient (REF) | payer BC, SELFPAY ==
--- NOTE | 2025-05-09 09:43 | CA_ITS ---
Transthoracic Echocardiogram Patient (Last, First, Middle): Patrick Coppola, Gender: M Date of : 1975 Age: 49 Procedure Date: 05/09/2025 Procedure Type: Transthoracic Echocardiogram Location: OP Height: 182.88 cm Weight: 98.88 kg BSA: 2.21 m2 Heart Rate: 64 bpm BP: 120 / 76 mmHg Metallurgy Laboratory Technician: RENE Referring MD: Magdiel Reynoso MD Forge Heater: Magdiel Reynoso MD Symptoms: R06.02 - Shortness of breath Study Quality: Adequate ECG Rhythm: Sinus Conclusions: - 1. Normal LV ejection fraction 55-60% with grade 1 diastolic dysfunction 2. Presence of small PFO 3. Mild aortic regurgitation 4. Mildly dilated ascending aorta 3.7 cm 5. Normal RV systolic pressure 6. No gross pericardial effusion Findings Left Ventricle Normal left ventricular size, thickness, and systolic function. The visually estimated ejection fraction is between 55-60%. Spectral Doppler is indicative of an impaired relaxation filling pattern. E/E prime ratio is <8, consistent with normal filling pressures. Evidence suggests grade I (mild) diastolic dysfunction. Right Ventricle Normal right ventricular cavity size and systolic function. Atria The left atrium is normal in size. Contrast study for right to left shunting is mildly positive. Contrast study for right to left shunting is mildly positive with Valsalva maneuver. Patent foramen ovale detected using by contrast. The right atrium is normal in size. Aortic Valve Normal aortic valve structure and function. There is no aortic valve stenosis. There is mild aortic valve regurgitation. Mitral Valve Normal mitral valve structure and function. There is no mitral valve regurgitation. There is no mitral valve stenosis. Pulmonic Valve The pulmonic valve is likely normal. There is trace pulmonic valve regurgitation. Tricuspid Valve Normal tricuspid valve structure. There is trace tricuspid valve regurgitation. The right ventricular systolic pressure is normal. The right ventricular systolic pressure is 25 mmHg. Normal right atrial pressure. There is no evidence of pulmonary hypertension. Great Vessels All visible segments of the aorta are normal in size. The pulmonary artery was not well visualized. There is mild dilatation of the ascending aorta measuring 3.70 cm. Venous The inferior vena cava is normal in size and collapses greater than 50% with inspiration. Pericardium/Pleural There is no evidence of pericardial effusion. Prior Study Comparison No prior study available for comparison. Measurements 2D Linear Measurements IVSd: 1.21 0.6-0.9/0.6-1.0 cm LVIDd: 5.30 3.9-5.3/4.2-5.9 cm LVIDd Index: 2.40 2.4-3.2/2.2-3.1 cm/m2 LVIDs: 3.75 2.0-3.6 cm LVPWd: 1.07 0.7-1.1 cm LA Diam: 4.20 2.7-3.8/3.0-4.0 cm LAIDs Index: 1.90 1.5-2.3 cm/m2 LV Mass: 298.11 67-162/88-224 g LV Mass Index: 134.89 43-95/49-115 g/m2 LVOT Diam: 2.40 3.0+(-)1.3 cm 2D Systolic Function EF 4C: 58.40 >55% EF 2C: 57.70 >55% EF BiP: 55.90 >55% Mitral Valve MV Pk E: 0.48 MV PK A: 0.59 MV Decel Time: 297.00 E/A: 0.80 E'Lateral: 9.25 E'Medial: 4.79 E/E' Med: 9.90 E/E' Lat: 5.10 PHT: 87.00 MVA PHT: 2.53 Decel [place]: 1.60 Aortic Valve AoV Pk Fernando: 1.42 AoV Mn Fernando: 1.12 AoV VTI: 0.31 AoV Pk Grad: 8.00 Aov Mn Grad: 5.00 BELÉN Cont.VTI: 3.32 LVOT LVOT Pk Fernando: 1.03 LVOT Mn Fernando: 0.78 LVOT VTI: 0.23 LVOT Pk Grad: 4.00 LVOT Mn Grad: 3.00 LVOT Diam: 2.40 LVOT Area: 4.52 Diastolic Function MV Pk E: 0.48 MV Pk A: 0.59 E/A: 0.80 E'Medial: 4.79 E/E' Med: 9.90 E' Laterial: 9.25 E/E' Lat: 5.10 Right Ventricle TAPSE (mm): 28.20 TVS' Fernando: 15.10 Tricuspid Valve TR Pk Fernando: 2.07 TR Pk Grad: 17.00 RA Press: 8.00 RVSP: 25.00 Great Vessels Aorta Sinus of Valsalva: 4.10 2.0-3.[address] Ridge: 3.00 1.7-3.4 cm Ao Asc: 3.70 2.1-3.4 cm Ao Arch: 2.90 Pulmonary Veins Pulm Vein S/D 1.70 Updated in Other Vendor System with Status of Final Magdiel Reynoso MD electronically signed on 05/09/2025 12:10:12 PM with status of Final
--- OUTSIDE RECORDS SUMMARY | 2025-05-09 11:27 | XMS_ITS | Clinical Summary ---
Author Organization [facility] Address [address] [facility] [address] [place] [phone] Phone Care Team Providers Care Washroom Operator Name Role Phone Noemi Andrade MD Primary Care Provider [phone] Allergies No known active allergies Medications allopurinol [...] EDT) SODIUM 141 133 - 146 mmol/L [facility] CHLORIDE 104 96 - 108 mmol/L [facility] POTASSIUM 4.0 3.3 - 5.1 mmol/L [facility] CO2 26 21 - 35 mmol/L [facility] BUN 10 6 - 19 mg/dL [facility] CREATININE 0.90 0.5 - 1.5 mg/dL [facility] GLUCOSE 106(H) 70 - 99 mg/dL [facility] CALCIUM 9.7 8.4 - 10.3 mg/dL [facility] EGFR 105 >59 mL/min/1.7 3m2 [facility] Comment:If patient is black, multiply result by 1.159. Estimated glomerular filtration rate calculated using the CKD-EPI equation. ANION GAP 15 10 - 20 mmol/L [facility] Blood 05/31/2019 11:2 9 AM EDT 05/31/2019 11:38 AM EDT us Em Vanessa PA LAB BLOOD ORDERABLES Fi nal Result [facility] [address] [place] [address] * Lipid panel (05/10/2015 12:00 PM EDT) High Density Lipoprotein 43 35 - 100 mg/dL [facility] Cholesterol 186 mg/dL [facility] Comment:DESIRABLE: <200 Triglycerides 120 40 - 150 mg/dL [facility] Low Density Lipoprotein 119 mg/dL [facility] Comment:DESIRABLE: <130 Cardiac Risk Ratio 4.3 [facility] Comment:NORMAL RISK RATIO: 5 .0 OR LESS 05/10/2015 12:0 0 PM EDT 05/10/2015 12:27 PM EDT Comment:BLOOD us Sharon Rios CNP LAB BLOOD ORDERABLES Edited Re sult - Final [facility] [address] [place] [address] from Last 3 Months or Most Recently Relevant to Health Maintenance Insurance [facility] PPO EPO [facility] PPO EPO [facility] PPO EPO [facility] PPO [place] [address] PPO EPO [facility] PPO EPO Care Teams Washroom Operator Relationship Specialty Start Date End Date Noemi Andrade MD [address] [place] [phone] PCP - General Internal Medicine 08/20/22 Additional Source Comments The information contained in this document represents components of the legal health record. It is not the complete legal health record.[facility]
--- OUTSIDE RECORDS SUMMARY | 2025-05-09 11:27 | XMS_ITS | Clinical Summary ---
Author Organization [facility] [address] [place] [address] [place] [phone] Phone Care Team Providers Care Religious Education Teacher Name Role Phone Noemi Andrade MD Primary Care Provider [phone] Allergies No known active allergies Medications allopurinoL [...] Overview (07/16/2024): Acute episode -vertigo. TIA per [facility] Patent foramen ovale 06/03/2015 Overview (07/16/2024): BILL @ [facility]- PFO w/ shunt at rest. Dyslipidemia 08/02/2013 [...] Site/Laterality Comments OTHER SURGICAL HISTORY 02/09/2011 PROCEDURE: [place] ESOPHAGOSCOPY FLEXIBLE TRANSORAL WITH BIOPSY; COMMENT: esoph bx: Eosinophilic esophagitis OTHER SURGICAL HISTORY Left PROCEDURE: [place] RPR 1ST INGUN HRNA FULL TERM INFT <6 MO RDC ESOPHAGOGASTRODUODENOSCOPY Medical History Medical History Date Comments Elevated blood pressure DX:[place] filemon blood pressure Gout 03/06/2010 DX:Gout Eosinophilic esophagitis 02/05/2011 DX:Eosi nophilic esophagitis Dyslipidemia 08/02/2013 DX:Dyslipidemia HTN (hypertension) 08/02/2013 DX:HTN (hyper tension) Patent foramen ovale 06/03/2015 DX:Patent f oramen ovale; COMMENT: BILL @ [facility]- PFO w/ shunt at rest. PFO (patent foramen ovale) 07/09/2015 DX:PF O (patent foramen ovale); COMMENT: Acute episode -vertigo. TIA per [facility] Hyperglycemia 06/01/2018 DX:Hyperglycemia Family History Medical History [...] screening purposes. Narrative 01/10/2025 4:13 PM EDT [facility] GI Patient Name: Zia Perez Procedure [...] verified by the physician, the nurse, the veterinary assistant technician and the lube technician in the pre-procedure area in the [...] malignant neoplasm of colon CPT copyright 2020 [employer]. All rights reserved. The codes documented in this report are preliminary and upon carrier packer review may be revised to meet current compliance requirements. Aditya Jarvis MD 01/10/2025 4:12:56 PM This report has been signed electronically.Aditya Jarvis MD Number of Addenda: 0 Note Initiated On: 01/10/2025 3:49 PM Scope Withdrawal Time: 0 hours 10 minutes 35 seconds Scope In: 3:56:13 PM Scope Out: 4:11:16 PM Endoscopy Department at [facility] - [address] [place] [phone] Procedure Note Aditya Jarvis MD - 01/10/2025 [facility] GI Patient Name: Zia Perez Procedure [...] the physician, the nurse, theanesthetist and the lube technician in the pre-procedure area in the [...] for malignantneoplasm of colon CPT copyright 2020 [employer]. All rights reserved. The codes documented in this report are preliminary and upon carrier packer reviewmay be revised to meet current compliance requirements. Aditya Jarvis MD 01/10/2025 4:12:56 PM This report has been signed electronically.Aditya Jarvis MD Number of Addenda: 0 Note Initiated On: 01/10/2025 3:49 PM Scope Withdrawal Time: 0 hours 10 minutes 35 seconds Scope In: 3:56:13 PM Scope Out: 4:11:16 PM Endoscopy Department at [facility] - [address] [place] [phone] IMPRESSION: - Diverticulosis in the sigmoid colon. [...] Most Recently Relevant to Health Maintenance Insurance [facility] Care Teams Religious Education Teacher Relationship Specialty Start Date End Date Noemi Andrade MD [address] [place] [id number] [facility] - General 06/27/20
== END ==
LOC: HO.CARD 09:41
PROVIDERS: PCP Internal Medicine; Visit Provider Internal Medicine Cardiovascular Disease
DX: R06.02 Shortness of breath (principal)
CPT/HCPCS: 93306

== ENCOUNTER → 2025-05-09 09:43 | Outpatient (BNV) | payer BC, SELFPAY | PROVIDERS: PCP Internal Medicine; Visit Provider Internal Medicine Cardiovascular Disease | DX: Q21.12 Patent foramen ovale (principal); I35.1 Nonrheumatic aortic (valve) insufficiency | CPT/HCPCS: 93306 ==

== ENCOUNTER 2025-05-22 09:59 | Outpatient (AMB) | payer BC, SELFPAY ==
--- NOTE | 2025-05-22 10:22 | MHC.OFFVIS ---
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 He continues to be short of breath with exertion and that concerns him. However he recently perform a stress test which at high workload achieving 90% of age predicted maximum heart rate was negative for ischemia. Echocardiogram shows normal LV ejection fraction with mild aortic regurgitation with a small PFO. None of these test explain in his symptoms of exertional shortness of breath which she thinks his recent onset. Only thing I noticed with stress test was slightly elevated blood pressure with exercise. On discussing that he might need increasing lisinopril he tells me that he has not been taking lisinopril on every day basis. He denies any lightheadedness, syncope. Says overall blood pressure at home is generally well controlled. Denies any prolonged palpitation irregular heartbeat. [facility] Surgical History Hx of hernia repair Social History Patient Tobacco Use Status: Former Tobacco user Review of Systems Const Denies chills, Denies fatigue, Denies fever(s), Denies frequent falls, Denies weakness, Denies weight gain and Denies weight loss ENT Denies dizziness Card Denies chest pain, Denies leg edema, Denies lightheadedness, Denies palpitations, Denies dyspnea, Denies dyspnea on exertion, Denies orthopnea and Denies other (loss of consciousness) Resp Denies cough, Denies dyspnea and Denies dyspnea on exertion GI Denies hematochezia and Denies change in stool character Musc Denies abnormal gait, Denies muscle weakness, Denies numbness, Denies radiating pain into limb and Denies tingling Neuro Denies Abnormal speech present, Denies abnormal gait, Denies dizziness, Denies frequent falls, Denies numbness, Denies tingling and Denies weakness Endo Denies fatigue and Denies palpitations Physical Exam Vital Signs: Last Vital Signs Pulse 61 05/22/25 10:23 BP 120/84 05/22/25 10:23 BMI result Body Mass Index 29.0 Const General: cooperative, comfortable, no acute distress, well developed, alert, awake, Physically active and well groomed Nutritional Appearance: average body habitus Orientation/consciousness: patient oriented x3 Limitations: no limitations HEENT Head: Yes normocephalic and Yes atraumatic Neck Neck: Yes trachea midline, Yes supple and Yes no JVD Resp Effort & Inspection: normal respiratory effort Auscultation: clear to auscultation bilaterally and diminished lung sounds Cardio Jugular venous distension: no JVD Palpation: normal PMI Rate: regular rate Rhythm: regular rhythm Heart sounds: S1 normal heart sound present, S2 normal heart sound present, no click, no gallops, no murmurs and no rubs GI Auscultation: normal bowel sounds Skin General skin exam: no rashes or lesions noted Neuro General: patient oriented x3 and no focal motor deficits Speech: No Abnormal speech present Extrem General: Yes no clubbing, cyanosis or edema Psych Appearance: grossly normal Assessment & Plan Assessment & Plan (1) Short of breath on exertion: Code(s): R06.02 - Shortness of breath Category: Medical Plan: Shortness of breath on exertion which is recent finding on this middle-aged man who has high functional capacity. Recent cardiac testing does not suggest any significant structural abnormality and no evidence of myocardial ischemia by stress test at high workload. He did have elevated blood pressure with exercise which could potentially cause him to have exertional shortness of breath. See below. He request pulmonary function test which I think is appropriate. Further treatment based on the findings. (2) HTN (hypertension): Code(s): I10 - Essential (primary) hypertension Category: Medical Plan: Hypertension with patient not taking his medications on a regular basis. I have suggested him to start taking lisinopril on every day basis. I think this should help with exercise induced hypertension as well and may help his symptoms. He does have significant risk factors and I would suggest him to undergo further screening for coronary atherosclerosis calcium score and advised him to undergo fasting lipid panel as well as CRP. This will help for further risk stratification purposes and management if he has any significant presence of coronary atherosclerosis. He understands and agrees. Follow up in the clinic in 1 year's time, sooner PRN. Thank you for allowing me to partake in his care Orders: Orders PFT pulmonary function test 05/22/25 R06.02 - Shortness of breath Lipoprotein A 05/22/25 I10 - Essential (primary) hypertension CT Coronary Calcium Score 1 Week E78.5 - Hyperlipidemia, unspecified, I10 - Essential (primary) hypertension Lipid Panel 05/22/25 I10 - Essential (primary) hypertension Apolipoprotein B 05/22/25 I10 - Essential (primary) hypertension CRP High Sensitivity 05/22/25 I10 - Essential (primary) hypertension Coding Level of Care Code Est Pt Level 4 (07852) Complex EM visit Add On G2211 Diagnoses Short of breath on exertion R06.02 HTN (hypertension) I10
[2025-05-22 10:23] VITALS: BP 120/84; PULSE 61; BMI 29.0
== END 2025-05-22 11:15 | disposition home or self-care (01) ==
LOC: HO.HCS 10:00
PROVIDERS: PCP Internal Medicine; Visit Provider Internal Medicine Cardiovascular Disease
DX: R06.02 Shortness of breath (principal); I10 Essential (primary) hypertension
CPT/HCPCS: 99214

== ENCOUNTER 2025-07-05 07:49 | Outpatient (REF) | payer BC, SELFPAY ==
--- OUTSIDE RECORDS SUMMARY | 2025-07-05 07:52 | XMS_ITS | Clinical Summary ---
Author Organization [facility] Address [address] [place] [phone] Phone Care Team Providers Care Lip Cutter Name Role Phone Noemi Andrade MD Primary Care Provider [phone] Allergies No known active allergies Medications allopurinol [...] FOBT 2021 SIGMOIDOSCOPY 2021 VIRTUAL COLONOSCOPY 2021 INFLUENZA VACCINE (#1) 2025 2, 05/20/2020, 06/11/2013, Additional history exists COVID-19 VACCINE (2024- season) 2025 06/16/2022, 07/02/2021, 11/30/2020, Additional history exists Adult [...] Date/Time Associated Diagnosis Comments BASIC METABOLIC PANEL (BMP) STAT 05/31/2019 11:29 AM EDT LIPID PANEL Routine 05/10/2015 12:00 PM EDT from Last 3 Months or Most Recently Relevant to Health Maintenance Results * (ABNORMAL) Basic metabolic panel (05/31/2019 11:29 AM EDT) SODIUM 141 133 - 146 mmol/L [facility] CHLORIDE 104 96 - 108 mmol/L [facility] POTASSIUM 4.0 3.3 - 5.1 mmol/L [facility] CO2 26 21 - 35 mmol/L [facility] BUN 10 6 - 19 mg/dL [facility] CREATININE 0.90 0.5 - 1.5 mg/dL [facility] GLUCOSE 106(H) 70 - 99 mg/dL [facility] CALCIUM 9.7 8.4 - 10.3 mg/dL [facility] EGFR 105 >59 mL/min/1.7 3m2 [facility] Comment:If patient is black, multiply result by 1.159. Estimated glomerular filtration rate calculated using the CKD-EPI equation. ANION GAP 15 10 - 20 mmol/L [facility] Blood 05/31/2019 11:2 9 AM EDT 05/31/2019 11:38 AM EDT us Em Vanessa PA LAB BLOOD BKR ORDERABLE S Final Result [facility] [address] [place] [address] * Lipid panel (05/10/2015 12:00 PM EDT) High Density Lipoprotein 43 35 - 100 mg/dL [facility] Cholesterol 186 mg/dL [facility] Comment:DESIRABLE: <200 Triglycerides 120 40 - 150 mg/dL [facility] Low Density Lipoprotein 119 mg/dL [facility] Comment:DESIRABLE: <130 Cardiac Risk Ratio 4.3 [facility] Comment:NORMAL RISK RATIO: 5 .0 OR LESS 05/10/2015 12:0 0 PM EDT 05/10/2015 12:27 PM EDT Comment:BLOOD us Sharon Rios CNP LAB BLOOD BKR ORDERABLES Edite d Result - Final [facility] [address] [place] [address] from Last 3 Months or Most Recently Relevant to Health Maintenance Insurance [facility] PPO EPO [facility] PPO EPO [facility] PPO [facility]PO [facility] PPO EPO [facility] PPO EPO [facility] PPO EPO Care Teams Lip Cutter Relationship Specialty Start Date End Date Noemi Andrade MD [address] [place] [id number] PCP - General Internal Medicine 08/20/22 Additional Source Comments The information contained in this document represents components of the legal health record. It is not the complete legal health record.[facility]
--- OUTSIDE RECORDS SUMMARY | 2025-07-05 07:52 | XMS_ITS | Clinical Summary ---
Author Organization [facility] [address] [place] [address] [place] [phone] Phone Care Team Providers Care Print Finishing Worker Name Role Phone Noemi Andrade MD Primary Care Provider [phone] Allergies No known active allergies Medications allopurinoL [...] Overview (07/16/2024): Acute episode -vertigo. TIA per [facility] Patent foramen ovale 06/03/2015 Overview (07/16/2024): BILL @ [facility]- PFO w/ shunt at rest. Dyslipidemia 08/02/2013 HTN (hypertension) 08/02/2013 Eosinophilic esophagitis 02/05/2011 Overview (07/16/2024): EGD + bx 02/09/2011: eosinophilic esophagitis. Gout 03/06/2010 Immunizations Immunization Administration Dates Next Due COVID-19 (Moderna/Spikevax) 12yo and older 06/16 Influenza trivalent, 0.5mL, preservative free (Fluarix; FluLaval; Fluzone) ages 6mo and older (Afluria) 3 years and older 06/11/2013,07/24/2010 Tdap Tetanus diptheria acell ular pertussis (Boostrix; Adacel) 7yo and older 08/03/2023,03/06/2010 Surgical History Surgery Date Site/Laterality Comments OTHER SURGICAL HISTORY 02/09/2011 PROCEDURE: [place] ESOPHAGOSCOPY FLEXIBLE TRANSORAL WITH BIOPSY; COMMENT: esoph bx: Eosinophilic esophagitis OTHER SURGICAL HISTORY Left PROCEDURE: [place] RPR 1ST INGUN HRNA FULL TERM INFT <6 MO RDC ESOPHAGOGASTRODUODENOSCOPY Medical History Medical History Date Comments Elevated blood pressure DX:[place] filemon blood pressure Gout 03/06/2010 DX:Gout Eosinophilic esophagitis 02/05/2011 DX:Eosi nophilic esophagitis Dyslipidemia 08/02/2013 DX:Dyslipidemia HTN (hypertension) 08/02/2013 DX:HTN (hyper tension) Patent foramen ovale 06/03/2015 DX:Patent f oramen ovale; COMMENT: BILL @ [facility]- PFO w/ shunt at rest. PFO (patent foramen ovale) 07/09/2015 DX:PF O (patent foramen ovale); COMMENT: Acute episode -vertigo. TIA per [facility] Hyperglycemia 06/01/2018 DX:Hyperglycemia Family History Medical History [...] Safety Answer Date Record ed Physical Abuse Unrecognized value 01/10/2025 Verbal Abuse Unrecognized value 01/10/2025 Sex and Gender Information Value Date [...] screening purposes. Narrative 01/10/2025 4:13 PM EDT [facility] GI Patient Name: Zia Perez Procedure [...] verified by the physician, the nurse, the public weigher and the reliability technician in the pre-procedure area in the [...] malignant neoplasm of colon CPT copyright 2020 [employer]. All rights reserved. The codes documented in this report are preliminary and upon oil bay technician review may be revised to meet current compliance requirements. Aditya Jarvis MD 01/10/2025 4:12:56 PM This report has been signed electronically.Aditya Jarvis MD Number of Addenda: 0 Note Initiated On: 01/10/2025 3:49 PM Scope Withdrawal Time: 0 hours 10 minutes 35 seconds Scope In: 3:56:13 PM Scope Out: 4:11:16 PM Endoscopy Department at [facility] - [address] [place] [phone] Procedure Note Aditya Jarvis MD - 01/10/2025 [facility] GI Patient Name: Zia Perez Procedure [...] the physician, the nurse, theanesthetist and the reliability technician in the pre-procedure area in the [...] for malignantneoplasm of colon CPT copyright 2020 [employer]. All rights reserved. The codes documented in this report are preliminary and upon oil bay technician reviewmay be revised to meet current compliance requirements. Aditya Jarvis MD 01/10/2025 4:12:56 PM This report has been signed electronically.Aditya Jarvis MD Number of Addenda: 0 Note Initiated On: 01/10/2025 3:49 PM Scope Withdrawal Time: 0 hours 10 minutes 35 seconds Scope In: 3:56:13 PM Scope Out: 4:11:16 PM Endoscopy Department at [facility] - [address] [place] [phone] IMPRESSION: - Diverticulosis in the sigmoid colon. [...] Most Recently Relevant to Health Maintenance Insurance [facility] Care Teams Print Finishing Worker Relationship Specialty Start Date End Date Noemi Andrade MD [address] [place] [id number] [facility] - General 06/27/20
[2025-07-05 08:39] LABS: Cholesterol 207 mg/dL (<200); HDL Cholesterol 61 mg/dL (>40); Triglycerides 90 mg/dL (<150)
== END 2025-07-05 07:50 | disposition home or self-care (01) ==
LOC: HO.LAB 07:49
PROVIDERS: PCP Internal Medicine; Visit Provider Internal Medicine Cardiovascular Disease
DX: I10 Essential (primary) hypertension (principal); R93.1 Abnormal findings on diagnostic imaging of heart and coronary circulation
CPT/HCPCS: 36415; 80061; 82172; 83695; 86141